=== PATIENT | male | born 1960 | race Hispanic/Latino ===

== ENCOUNTER 2018-10-03 21:26 | Emergency (ER) | payer BC ==
[2018-10-03] MEDS ORDERED: Sodium Chloride 0.9% 1,000 ML IV STA (21:34)
[2018-10-03 21:36] VITALS: RESP 18; TEMP 98.7; O2SAT 99
--- NOTE | 2018-10-03 21:50 | ED PDOC ---
HPI: Abdomen Time Seen by Provider: 10/03/18 21:34 Chief Complaint (Nursing): Abdominal Pain Chief Complaint (Provider): Abdominal Pain History Per: Patient History/Exam Limitations: no limitations Onset/Duration Of Symptoms: Days (x3) Current Symptoms Are (Timing): Still Present Additional Complaint(s): 58 y/o male with a PMHx of HTN and Kidney Stones presents to the ED for evaluation of intermittent RLQ pain, onset three days ago. Patient reports pain is sharp in nature and associated with vomiting. Otherwise, patient denies diarrhea and urinary symptoms. Of note, patient reports pain is similar to that associated with Kidney Stones in the past. PMD: Robbie Mayberry Past Medical History Reviewed: Historical Data, Nursing Documentation, Vital Signs Vital Signs: Last Vital Signs Temp 98.7 F 10/03/18 21:29 Pulse 80 10/03/18 21:29 Resp 18 10/03/18 21:29 BP 167/90 H 10/03/18 21:29 Pulse Ox 99 10/03/18 21:29 - Medical History PMH: HTN - Surgical History Surgical History: No Surg Hx - Family History Family History: States: Unknown Family Hx - Home Medications Home Medications: Ambulatory Orders Medication Instructions Recorded Sulfamethoxazole/Trimethoprim 1 tab PO BID #20 tab 10/04/18 [Bactrim DS 800 mg-160 mg] Tamsulosin [Flomax] 0.4 mg PO DAILY #5 cap 10/04/18 traMADol [Ultram] 50 mg PO Q8 #10 tab 10/04/18 - Allergies Allergies/Adverse Reactions: Allergies Allergy/AdvReac Type Severity Reaction Status Date / Time No Known Allergies Allergy Verified 10/03/18 21:29 Review of Systems ROS Statement: Except As Marked, All Systems Reviewed And Found Negative Gastrointestinal: Positive for: Vomiting, Abdominal Pain. Negative for: Diarrhea Genitourinary Male: Negative for: Dysuria, Frequency, Hematuria Physical Exam - Reviewed Nursing Documentation Reviewed: Yes Vital Signs Reviewed: Yes - Physical Exam Appears: Positive for: No Acute Distress Head Exam: Positive for: ATRAUMATIC, NORMOCEPHALIC Skin: Positive for: Normal Color, Warm, Dry Eye Exam: Positive for: Normal appearance, EOMI, PERRL Neck: Positive for: Normal, Painless ROM Cardiovascular/Chest: Positive for: Regular Rate, Rhythm. Negative for: Murmur Respiratory: Positive for: Normal Breath Sounds. Negative for: Respiratory Distress Gastrointestinal/Abdominal: Positive for: Normal Exam, Soft. Negative for: Tenderness (RLQ tenderess) Back: Positive for: Normal Inspection. Negative for: L CVA Tenderness, R CVA Tenderness, Vertebral Tenderness Extremity: Positive for: Normal ROM. Negative for: Deformity Neurological/Psych: Positive for: Awake, Alert, Oriented (x3). Negative for: Motor/Sensory Deficits - Laboratory Results Result Diagrams: 10/03/18 22:08 10/03/18 22:08 - ECG O2 Sat by Pulse Oximetry: 99 (RA) Pulse Ox Interpretation: Normal Medical Decision Making Medical Decision Making: Time: 2133 Impression: Right sided abdominal pain Plan: -- Will obtain imaging, CT Abd/Pelvis to rule out appendicitis as well as determine if kidney stones are present -- CT Abd/Pelvis w/o PO or IV Contrast -- CMP -- ED Urine Dipstick -- CBC with Differentials -- Sodium Chloride IV 100 mls/hr -- Pepcid 20 mg IVP -- Zofran Inj 4 mg IVP Scribe Attestation: Documented by Steffi Siddiqi, acting as a scribe Rashel Davies MD. Provider Scribe Attestation: All medical record entries made by the Scribe were at my direction and personally dictated by me. I have reviewed the chart and agree that the record accurately reflects my personal performance of the history, physical exam, m edical decision making, and the department course for this patient. I have also personally directed, reviewed, and agree with the discharge instructions and disposition. Disposition - Clinical Impression Clinical Impression: Kidney stone on right side - Patient ED Disposition Is Patient to be Admitted: No Counseled Patient/Family Regarding: Studies Performed, Diagnosis, Need For Followup, Rx Given - Disposition Referrals: Jose Vaughn MD [Staff Provider] - Disposition: Routine/Home Disposition Time: 00:01 Condition: FAIR Prescriptions: Sulfamethoxazole/Trimethoprim [Bactrim DS 800 mg-160 mg] 1 tab PO BID #20 tab Tamsulosin [Flomax] 0.4 mg PO DAILY #5 cap traMADol [Ultram] 50 mg PO Q8 #10 tab Instructions: Kidney Stones in Adults Forms: [facility] (Persian)
[2018-10-03 22:13] LABS: BASO % 0.7 % (0.0-2.0); EOS # 0.1 K/uL (0.0-0.7); EOS % 2.7 % (0.0-4.0); HEMOGLOBIN 10.9 g/dL (12.0-18.0); LYMPH # 1.6 K/uL (1.0-4.3); MEAN CELL VOLUME 91.8 fl (80.0-94.0); MEAN CORPUSCULAR HEMOGLOBIN 22.1 pg (27.0-31.0); MEAN PLATELET VOLUME 9.1 fl (7.2-11.7); MONO # 0.4 K/uL (0.0-0.8); MONO % 8.3 % (0.0-10.0); NEUT # 2.8 K/uL (1.8-7.0); NEUT % 56.3 % (50.0-75.0); RBC 4.93 Mil/uL (4.40-5.90); RED CELL DISTRIBUTION WIDTH 13.5 % (11.5-14.5)
[2018-10-03 22:22] LABS: BLOOD UREA NITROGEN 23 mg/dl (9-20); CALCIUM 9.6 mg/dL (8.4-10.2); GFR NON-AFRICAN AMERICAN > 60
[2018-10-03 22:26] LABS: ALB/GLOB RATIO 1.3 (1.0-2.1); ALBUMIN 4.6 g/dL (3.5-5.0); ALT/SGPT 55 U/L (21-72); AST/SGOT 65 U/L (17-59)
[2018-10-04 00:20] VITALS: BP 141/89; PULSE 73
--- NOTE | 2018-10-04 11:11 | CT ---
Date of service: 10/03/2018 PROCEDURE: CT Abdomen and Pelvis without intravenous contrast HISTORY: RLQ pain COMPARISON: CT scan of the abdomen and pelvis dated 08/28/2012. TECHNIQUE: Contiguous images were obtained from the domes of the diaphragms to the upper thighs without the administration of intravenous contrast. Oral contrast was not administered. Radiation dose: Total exam DLP = 883.08 mGy-cm. This CT exam was performed using one or more of the following dose reduction techniques: Automated exposure control, adjustment of the mA and/or kV according to patient size, and/or use of iterative reconstruction technique. FINDINGS: LOWER THORAX: Cardiomegaly. Coronary arterial and valvular calcifications. Right lower lobe calcified granuloma. No focal consolidation or pleural effusion. LIVER: Diffuse hepatic steatosis. No gross lesion or ductal dilatation. GALLBLADDER AND BILE DUCTS: Unremarkable. PANCREAS: Unremarkable. No gross lesion or ductal dilatation. SPLEEN: Unremarkable. ADRENALS: Unremarkable. No mass. KIDNEYS AND URETERS: Mild right hydroureteronephrosis. No solid mass. VASCULATURE: Unremarkable. No aortic aneurysm. No aortic atherosclerotic calcification or mural plaque present. BOWEL: Unremarkable. No obstruction. No gross mural thickening. APPENDIX: Unremarkable. Normal appendix. PERITONEUM: Small bilateral fat containing inguinal hernias. No free fluid. No free air. LYMPH NODES: Unremarkable. No enlarged lymph nodes. BLADDER: Small 3 x 2 mm right bladder calculus in the region of the ureterovesicular junction. REPRODUCTIVE: Prostatomegaly measuring 7.2 x 6.2 cm in greatest axial dimensions. Enlarged, lobular appearance of the right seminal vesicle, similar in appearance from 2013 BONES: Stable small sclerotic foci in the right L3 and L5 pedicles. No acute fracture. OTHER FINDINGS: None. IMPRESSION: Small 3 x 2 mm calculus either lodged within the right ureterovesicular junction or within the right dependent portion of the urinary bladder causing mild right hydroureteronephrosis. Marked prostatomegaly with enlarged, lobular appearance of the right seminal vesicle. Correlation with PSA level and/or prostate MRI is recommended. Additional stable findings as above.
== END 2018-10-04 00:18 | disposition home or self-care (01) ==
LOC: H.ER 21:26
DX: N20.0 Calculus of kidney (principal); I10 Essential (primary) hypertension
CPT/HCPCS: 74176; 80053; 85025; 99283; J7030